=== PATIENT | female | born 1970 | race Caucasian/White ===

== ENCOUNTER → 2017-06-08 | Outpatient (CLI) | payer OTHER, BC ==
[~2017-06-08] MED LIST: COREG3.125 MG PO; VICODIN 5/500 505 MG PO
== END | disposition home or self-care (01) ==
LOC: MAMMO 13:12 → US 13:30 → MAMMO 13:30
DX: N60.02 Solitary cyst of left breast (principal)

== ENCOUNTER → 2017-11-17 | Outpatient (CLI) | payer OTHER | END | disposition home or self-care (01) | LOC: RAD 15:07 | DX: M79.604 Pain in right leg (principal) ==

== ENCOUNTER 2019-03-19 20:03 | Emergency (ER) | payer OTHER ==
[~2019-03-19] VITALS: Ht 170.1 cm; Wt 85.7 kg
[2019-03-19] MEDS ORDERED: HYDROCHLOROTHIA25 M1 PO (20:09)
[2019-03-19 20:57] LABS: BASO % 0.4 % (0.0-1.0); EOS % 0.3 % (1.0-4.0); HEMATOCRIT 39.8 % (37.0-47.0); HEMOGLOBIN 12.9 g/dl (12.0-16.0); LYMPH # 0.7 10*3/uL (1.3-4.4); LYMPH % 10.1 % (27.0-41.0); MEAN CELL VOLUME 88.2 fl (81.0-99.0); MEAN CORPUSCULAR HGB 28.6 pg (27.0-31.0); MEAN CORPUSCULAR HGB CONC 32.4 g/dl (33.0-37.0); MONO # 0.6 10*3/uL (0.1-1.0); NEUT # 5.5 10*3/uL (2.3-7.9); NEUT % 80.1 % (47.0-73.0); PLATELET COUNT AUTOMATED 219 10*3/uL (130-400); RED BLOOD COUNT 4.51 10*6/uL (4.10-5.10); RED CELL DISTRI WIDTH 13.2 % (0-14.5); WHITE BLOOD COUNT 6.8 10*3/uL (4.8-10.8)
[2019-03-19 21:06] LABS: INTERNATIONAL NORM RATIO 0.9 (2.0-3.5)
[2019-03-19 21:11] LABS: ALBUMIN 3.7 gm/dl (3.1-4.5); ALKALINE PHOSPHATASE 83 U/L (45-117); BUN 15 mg/dl (7-24); CHLORIDE 103 mmol/L (98-107); CREATININE 0.95 mg/dL (0.55-1.02); POTASSIUM 3.1 mmol/L (3.5-5.1); SGOT/AST 29 IU/L (3-35); SGPT/ALT 30 U/L (12-78); SODIUM 135 mmol/L (136-145); TOTAL PROTEIN 8.3 gm/dL (6.4-8.2)
[2019-03-19 21:13] VITALS: BP 106/62
[2019-03-19] MEDS ORDERED: CLEOCIN HCL150 MG PO (22:06)
== END 2019-03-20 00:13 | disposition home or self-care (01) ==
LOC: ED 20:03
PROVIDERS: Nurse Practitioner Family
DX: L03.115 Cellulitis of right lower limb (principal); Z79.899 Other long term (current) drug therapy; Z88.0 Allergy status to penicillin; Z88.4 Allergy status to anesthetic agent

== ENCOUNTER → 2021-05-26 | Day surgery (SDC) | payer OTHER ==
[~2021-05-26] VITALS: Ht 172.7 cm; Wt 91.2 kg
[~2021-05-26] MED LIST changes: +APPLE CIDER VI300 MG PO; +CLEOCIN HCL150 MG PO; +DAILY VALUE1 EACH PO; +HYDROCHLOROTHIA25 M1 PO
[2021-05-26 07:48] VITALS: BP 156/77
[2021-05-26 09:20] VITALS: BP 108/54
[2021-05-26 09:49] VITALS: BP 122/68
== END | disposition home or self-care (01) ==
LOC: SDC 05-23 08:45
PROVIDERS: ATTEND Surgery
DX: Z12.11 Encounter for screening for malignant neoplasm of colon (principal); I10 Essential (primary) hypertension; Z88.0 Allergy status to penicillin; Z79.899 Other long term (current) drug therapy; Z20.822 Contact with and (suspected) exposure to COVID-19

== ENCOUNTER → 2021-09-12 | Outpatient (CLI) | payer BC, OTHER | END | disposition home or self-care (01) | LOC: RESCLI 13:37 | PROVIDERS: ATTEND Internal Medicine | DX: I10 Essential (primary) hypertension (principal); Z88.0 Allergy status to penicillin; Z79.899 Other long term (current) drug therapy ==